=== PATIENT | male | born 1955 | race Caucasian/White ===

== ENCOUNTER 2021-01-31 13:00 | Outpatient (CLI) | payer OTHER ==
[2021-01-31] MEDS ORDERED: COLLAGENASE 5 GM TUBE UD TP ONE (14:24)
== END 2021-01-31 23:59 | disposition home health service (06) ==
LOC: WOU 13:00
PROVIDERS: ATTEND Specialist
DX: E11.69 Type 2 diabetes mellitus with other specified complication (principal); M86.672 Other chronic osteomyelitis, left ankle and foot; E11.621 Type 2 diabetes mellitus with foot ulcer; L97.529 Non-pressure chronic ulcer of other part of left foot with unspecified severity; H54.42A3 Blindness left eye category 3, normal vision right eye; Z79.4 Long term (current) use of insulin
CPT/HCPCS: G0463